=== PATIENT | female | born 1935 | race Caucasian/White ===

== ENCOUNTER 2016-08-02 09:51 | Emergency (ER) | payer MEDICARE ==
--- NOTE | 2016-08-02 10:41 | ERRECORD ---
[facility] EMERGENCY RECORD HPI GENERAL (10:26 LLDO) CHIEF COMPLAINT: Patient presents for evaluation of pt refused to be seen. wouldn't let nurses get vital signs. specifically said she didn't want the doctor to see her. apparently some non-functional family dynamics triggered this non-event. HISTORIAN: History provided by patient, History provided by patient's family, DAUGHTER. ROS (10:29 LLDO) CONSTITUTIONAL: no ros done. NOTES: Systems not reviewed; unable. PAST MEDICAL HISTORY (10:30 LLDO) NOTES: Nursing records reviewed, Agree with nursing records, Medication list reviewed. KNOWN ALLERGIES promethazine Sulfa (Sulfonamide Antibiotics) CURRENT MEDICATIONS No recorded medications PHYSICAL EXAM (10:29 LLDO) CONSTITUTIONAL: no pe done. DOCTOR NOTES (10:34 LLDO) TEXT: pt was brought in because daughter called 911 and said pt had pain. on arrival, pt denied any pain. PROBLEM LIST No recorded problems DIAGNOSIS (10:33 LLDO) FINAL: PRIMARY: left without being seen. PRESCRIPTION No recorded prescriptions DISPOSITION PATIENT: Disposition Type: Eloped, Disposition: Left Without Being Seen. (10:33 LLDO) Disposition Transport: Ambulance, Condition: Good, Patient left the department. (10:51 LWAL) Ortiz: LLDO=MD Vianney, Surya LWAL=SANDRA Pickard, Luli &a-1R&a+25V*p+0X*[id number]*c202B*c15G*c2P*p-0X&a-25V&a+1R Name: Ameena Curtis Bruce : 1935 F81 MedRec: [id number] AcctNum: [id number] Prepared: Ksenia Aug 02, 2016 10:56 by Interface Page 1 of 1 pMD MTDD
--- NOTE | 2016-08-02 10:48 | PICIS ---
[facility] EMERGENCY RECORD TRIAGE (SatAug 02, 2016 10:12 LWAL) PATIENT: NAME: Ameena Curtis, AGE: 81, GENDER: female, : Sat1935, TIME OF GREET: SatAug 02, 2016 09:52, PREFERRED LANGUAGE: [place]raini, RACE: WHITE, ETHNICITY: Not or , ECODE BILLING MAP: [facility], SSN: [id number], Zip Code: [address], KG WEIGHT: 46.27, PHONE: , , , PERSON ID: [id number], PCP: Clemente HEDRICK KERRY. TRIAGE NOTES: r hip and r shoulder pain- none now. COMPLAINT: RT HIP / RT SHOULDER PAIN. ADMISSION: URGENCY: [address], ADMISSION SOURCE: Home, TRANSPORT: AMBULANCE - [facility], BED: ED -01. PROVIDERS: TRIAGE NURSE: Luli Pickard RN. KNOWN ALLERGIES promethazine Sulfa (Sulfonamide Antibiotics) CURRENT MEDICATIONS No recorded medications NURSING PROCEDURE: NURSE NOTES NURSES NOTES: Notes: pt refusing to have vitals taken or to have the doctor see her. she is not in pain at the time and wants to go home. (10:15 LWAL) Notes: Duaghter at bedside, pt and daughter not getting along. Pt feels like daughter is trying to get her committed to a facility and take away her rights. Pt still refusing to be seen and does not want the doctor to see her. Daughter in agreement, called EMS to transport pt home due to inability to walk and stairs are involved in getting pt inside home. Pt with hx of stroke and R sided paralysis. (10:30 LWAL) HPI GENERAL (10:26 LLDO) CHIEF COMPLAINT: Patient presents for evaluation of pt refused to be seen. wouldn't let nurses get vital signs. specifically said she didn't want the doctor to see her. apparently some non-functional family dynamics triggered this non-event. HISTORIAN: History provided by patient, History provided by patient's family, DAUGHTER. ROS (10:29 LLDO) CONSTITUTIONAL: no ros done. NOTES: Systems not reviewed; unable. PAST MEDICAL HISTORY (10:30 LLDO) NOTES: Nursing records reviewed, Agree with nursing records, Medication list reviewed. PHYSICAL EXAM (10:29 LLDO) &a-1R&a+25V*p+0X*[id number]*c202B*c15G*c2P*p-0X&a-25V&a+1R Name: Ameena Curtis : 1935 F81 MedRec: [id number] AcctNum: [id number] Prepared: SatAug 02, 2016 11:03 by Interface Page 1 of 2 pMD [facility] EMERGENCY RECORD CONSTITUTIONAL: no pe done. EVENTS TRANSFER: Triage to Emergency Main ED -01. (SatAug 02, 2016 10:12 LWAL) Removed from Emergency Main ED -01. (10:51 LWAL) DOCTOR NOTES (10:34 LLDO) TEXT: pt was brought in because daughter called 911 and said pt had pain. on arrival, pt denied any pain. PROBLEM LIST No recorded problems DIAGNOSIS (10:33 LLDO) FINAL: PRIMARY: left without being seen. DISPOSITION PATIENT: Disposition Type: Eloped, Disposition: Left Without Being Seen. (10:33 LLDO) Disposition Transport: Ambulance, Condition: Good, Patient left the department. (10:51 LWAL) PRESCRIPTION No recorded prescriptions ADMIN (10:35 LLDO) DIGITAL SIGNATURE: MD Faith Lloyd. Ortiz: LLDO=MD Faith Lloyd LWAL=SANDRA Pickard, [facility] &a-1R&a+25V*p+0X*[id number]*c202B*c15G*c2P*p-0X&a-25V&a+1R Name: Ameena Curtis : 1935 F81 MedRec: [id number] AcctNum: [id number] Prepared: SatAug 02, 2016 11:03 by Interface Page 2 of 2 pMD MTDD
== END 2016-08-02 10:51 | disposition left against medical advice (07) ==
LOC: MADERS 09:51
DX: Z53.21 Procedure and treatment not carried out due to patient leaving prior to being seen by health care provider (principal)

== ENCOUNTER 2017-02-11 12:55 | Outpatient (CLI) | payer MEDICARE ==
[2017-02-11 14:25] LABS: #Basophils 0.1 thou/uL (0.0-0.2); #Eosinphils 0.1 thou/uL (0.0-0.7); #Lymphocytes 2.6 thou/uL (1.20-3.40); #Monocytes 0.6 thou/uL (0.11-0.59); #Neutrophils 1.9 thou/uL (1.40-6.50); %Basophils 1.5 % (0.0-1.0); %Eosinophils 2.8 % (0.0-10.0); %Lymphocytes 48.9 % (21.0-51.0); %Monocytes 10.5 % (0.0-10.0); %Neutrophils 36.4 % (42.0-75.0); Hemoglobin 13.6 g/dL (12.0-16.0); Mean Corpuscular HGB CONC 32.9 g/dL (32.0-36.0); Mean Corpuscular Hemoglobin 29.9 pg (27.0-31.0); Mean Corpuscular Volume 90.9 fl (81.0-99.0); Mean Platelet Volume 8.2 fL (7.4-10.4); Platelet Count 219 thou/uL (130-400); RBC Distribution Width 13.5 % (11.5-14.5); Red Blood Cell (RBC) Count 4.55 mill/uL (4.20-5.40); White Blood Cell (WBC) Count 5.2 thou/uL (4.8-10.8)
[2017-02-11 14:33] LABS: Hemoglobin A1c 6.3 % (4.0-6.0)
[2017-02-11 14:35] LABS: ALT (SGPT) 16 U/L (8-55); AST (SGOT) 21 U/L (5-34); Albumin 3.8 g/dL (3.4-4.8); Alkaline Phosphatase 60 U/L (40-150); Anion Gap 14 mmol/L (10-20); BUN (Urea Nitrogen) 19 mg/dL (9.8-20.1); Bilirubin, Total 0.7 mg/dL (0.2-1.2); Calc. Creatinine Clearance 0 mL/min (70-130); Calcium 9.4 mg/dL (7.8-10.44); Carbon Dioxide 26 mmol/L (23-31); Cardiac Risk 4.3 (Less than 4.5); Chloride 101 mmol/L (98-107); Cholesterol 180 mg/dl (< 200 Desired); Estimated GFR-MDRD 85; Globulin 3.4 g/dL (2.4-3.5); Glucose 104 mg/dL (83-110); HDL Cholesterol 42 mg/dL (>60 Neg Risk); LDL Cholesterol, Calculated 117 mg/dL; Protein, Total 7.2 g/dL (6.0-8.3); Sodium 137 mmol/L (136-145); Triglycerides 106 mg/dL (Less than 150)
== END 2017-02-11 12:56 | disposition home or self-care (01) ==
LOC: MADLAB 12:55
PROVIDERS: ATTEND Family Medicine
DX: I25.10 Atherosclerotic heart disease of native coronary artery without angina pectoris (principal); F32.9 Major depressive disorder, single episode, unspecified; E11.42 Type 2 diabetes mellitus with diabetic polyneuropathy; I10 Essential (primary) hypertension
CPT/HCPCS: 80053; 80061; 83036; 84443; 85025

== ENCOUNTER 2017-03-06 14:32 | Outpatient (CLI) | payer MEDICARE ==
[2017-03-06 16:29] LABS: Clarity Slightly Cloudy (Clear)
[2017-03-06 16:30] LABS: Bacteria/HPF 4+ HPF (None Seen); Bilirubin Negative (Negative); Blood, Urine Negative (Negative); Glucose, Urine (Dipstick) Negative (Negative); Leukocyte Large (Negative); Nitrite Negative (Negative); Protein, Urine (Dipstick) Negative (Neg-Trace); RBC/HPF 0-3 HPF (0-3); Urobilinogen 0.2 mg/dL (0.2-1.0); WBC/HPF 21-50 HPF (0-3)
== END 2017-03-06 14:33 | disposition home or self-care (01) ==
LOC: MADLAB 14:32
PROVIDERS: ATTEND Family Medicine
DX: N30.00 Acute cystitis without hematuria (principal)
CPT/HCPCS: 36415; 81001; 87077; 87086; 87186